=== PATIENT | female | born 1990 | race Caucasian/White ===

== ENCOUNTER → 2016-04-13 | Outpatient (CLI) | payer OTHER ==
[2016-04-13 08:10] LABS: Basophils # (auto) 0 uL; Basophils % (auto) 0.3 % (0.0-2.0); Eosinophils # (auto) 0.1 uL; Eosinophils % (auto) 0.8 % (0.0-7.0); Hemoglobin 12.7 g/dL (12.2-16.2); Lymphocytes % (auto) 14.5 % (10.0-50.0); Mean Corpuscular Hemoglobin 30.4 pg (28.0-32.0); Mean Corpuscular Hgb Conc. 32.5 g/dL (32.0-36.0); Mean Corpuscular Volume 93.7 fL (80.0-100.0); Monocytes # (auto) 0.6 uL; Neutrophils # (auto) 11.1 uL; Neutrophils % (auto) 80.4 % (37.0-80.0); Platelet Count (auto) 265 10^3/uL (140-450); Red Cell Distribution Width 13.2 % (11.6-16.0); White Blood Cell 13.8 10^3/uL (4.4-10.8)
== END | disposition home or self-care (01) ==
LOC: LAB 07:40
PROVIDERS: ATTEND Obstetrics & Gynecology
DX: Z34.00 Encounter for supervision of normal first pregnancy, unspecified trimester (principal)
CPT/HCPCS: 36415; 82951; 83001; 84403; 84443; 85025

== ENCOUNTER → 2016-04-28 | Outpatient (CLI) | payer OTHER | END | disposition home or self-care (01) | LOC: LAB 08:24 | PROVIDERS: ATTEND Obstetrics & Gynecology | DX: Z34.00 Encounter for supervision of normal first pregnancy, unspecified trimester (principal) | CPT/HCPCS: 86850; 86900; 86901 ==

== ENCOUNTER → 2016-06-08 | Outpatient (CLI) | payer OTHER ==
[2016-06-08 09:05] LABS: Basophils # (auto) 0.1 uL; Basophils % (auto) 0.4 % (0.0-2.0); Eosinophils # (auto) 0.1 uL; Eosinophils % (auto) 0.7 % (0.0-7.0); Hematocrit 39.8 % (36.0-46.0); Hemoglobin 13.5 g/dL (12.2-16.2); Lymphocytes % (auto) 16.5 % (10.0-50.0); Mean Corpuscular Hemoglobin 31.3 pg (28.0-32.0); Mean Corpuscular Volume 92.2 fL (80.0-100.0); Mean Platelet Volume 9.2 fL (7.4-10.4); Monocytes # (auto) 0.6 uL; Monocytes % (auto) 5.4 % (0.0-12.0); Neutrophils # (auto) 9.2 uL; Platelet Count (auto) 237 10^3/uL (140-450); Red Cell Distribution Width 13.3 % (11.6-16.0)
== END | disposition home or self-care (01) ==
LOC: LAB 08:32
PROVIDERS: ATTEND Obstetrics & Gynecology
DX: Z11.3 Encounter for screening for infections with a predominantly sexual mode of transmission (principal); Z34.00 Encounter for supervision of normal first pregnancy, unspecified trimester; N76.0 Acute vaginitis
CPT/HCPCS: 36415; 85025; 87081

== ENCOUNTER → 2016-06-22 | Outpatient (CLI) | payer OTHER ==
[2016-06-22 09:23] LABS: Basophils # (auto) 0 uL; Basophils % (auto) 0.2 % (0.0-2.0); Eosinophils # (auto) 0.1 uL; Eosinophils % (auto) 0.8 % (0.0-7.0); Hematocrit 40.4 % (36.0-46.0); Hemoglobin 13.7 g/dL (12.2-16.2); Lymphocytes % (auto) 16.1 % (10.0-50.0); Mean Corpuscular Hemoglobin 31.2 pg (28.0-32.0); Mean Corpuscular Hgb Conc. 33.8 g/dL (32.0-36.0); Mean Corpuscular Volume 92.3 fL (80.0-100.0); Mean Platelet Volume 9.2 fL (7.4-10.4); Monocytes # (auto) 0.7 uL; Monocytes % (auto) 5.3 % (0.0-12.0); Neutrophils # (auto) 9.7 uL; Neutrophils % (auto) 77.6 % (37.0-80.0); Platelet Count (auto) 226 10^3/uL (140-450); Red Cell Distribution Width 13.2 % (11.6-16.0); White Blood Cell 12.4 10^3/uL (4.4-10.8)
[2016-06-22 10:10] LABS: Albumin 2.7 g/dL (3.4-5.0); BUN/Creatinine Ratio 7.5; Bilirubin, Total 0.3 mg/dL (0.2-1.0); Potassium 3.9 mmol/L (3.5-5.1); Total Protein 7.1 g/dL (6.4-8.2); Uric Acid 3.5 mg/dL (2.6-6.0)
== END | disposition home or self-care (01) ==
LOC: LAB 08:58
PROVIDERS: ATTEND Obstetrics & Gynecology
DX: Z34.00 Encounter for supervision of normal first pregnancy, unspecified trimester (principal); O10.913 Unspecified pre-existing hypertension complicating pregnancy, third trimester
CPT/HCPCS: 36415; 80053; 84550; 85025

== ENCOUNTER 2016-07-04 12:40 | Observation (INO) | payer OTHER | END 2016-07-04 14:20 | disposition home or self-care (01) | DRG 782 | LOC: LDRP 12:40 | PROVIDERS: ADMIT Specialist; ATTEND Specialist | DX: O13.3 Gestational [pregnancy-induced] hypertension without significant proteinuria, third trimester (principal); Z3A.39 39 weeks gestation of pregnancy | CPT/HCPCS: 59025; 76818; 81002; 84156; G0378 ==

== ENCOUNTER 2016-07-06 10:05 | Observation (INO) | payer OTHER ==
[~2016-07-06] VITALS: Ht 170.2 cm; Wt 93.4 kg
[2016-07-06 10:57] LABS: Urine Bilirubin Negative (Negative); Urine Blood Negative /uL (Negative); Urine Color Yellow (Yellow); Urine Glucose Normal (Normal); Urine Ketone Negative (Negative); Urine Nitrite Negative (Negative); Urine RBC <1 /hpf (0 - 4); Urine Squamous Epithelial Cell FEW /hpf (<5); Urine Urobilinogen Normal (Negative); Urine pH 6.5 (5.0-8.0)
[2016-07-06 11:08] LABS: Basophils # (auto) 0 uL; Basophils % (auto) 0.3 % (0.0-2.0); Eosinophils # (auto) 0.1 uL; Eosinophils % (auto) 0.5 % (0.0-7.0); Hematocrit 39.1 % (36.0-46.0); Hemoglobin 13.2 g/dL (12.2-16.2); Lymphocytes # (auto) 1.5 uL; Lymphocytes % (auto) 14.6 % (10.0-50.0); Mean Corpuscular Hemoglobin 31.3 pg (28.0-32.0); Mean Corpuscular Hgb Conc. 33.9 g/dL (32.0-36.0); Mean Corpuscular Volume 92.3 fL (80.0-100.0); Mean Platelet Volume 9.6 fL (7.4-10.4); Monocytes # (auto) 0.6 uL; Monocytes % (auto) 5.9 % (0.0-12.0); Neutrophils # (auto) 8.1 uL; Neutrophils % (auto) 78.7 % (37.0-80.0); Platelet Count (auto) 218 10^3/uL (140-450); White Blood Cell 10.3 10^3/uL (4.4-10.8)
[2016-07-06 11:17] LABS: BUN/Creatinine Ratio 11.1; Bilirubin, Total 0.2 mg/dL (0.2-1.0); Potassium 3.8 mmol/L (3.5-5.1); Total Protein 6.6 g/dL (6.4-8.2)
[2016-07-06 11:18] LABS: Albumin 2.8 g/dL (3.4-5.0); INR 0.89 (0.9-1.15); Partial Thromboplastin Time 25.6 sec (22.64-33.71); Prothrombin Time 9.6 sec (9.37-12.3); Uric Acid 3.5 mg/dL (2.6-6.0)
== END 2016-07-06 12:00 | disposition home or self-care (01) | DRG 781 ==
LOC: LDRP 10:05
PROVIDERS: ADMIT Obstetrics & Gynecology; ATTEND Obstetrics & Gynecology
DX: O13.3 Gestational [pregnancy-induced] hypertension without significant proteinuria, third trimester (principal); O26.893 Other specified pregnancy related conditions, third trimester; O62.9 Abnormality of forces of labor, unspecified; N89.8 Other specified noninflammatory disorders of vagina; Z3A.39 39 weeks gestation of pregnancy
CPT/HCPCS: 36415; 59025; 76818; 80053; 81001; 81002; 84550; 85025; 85379; 85610; 85730; G0378

== ENCOUNTER 2016-07-11 12:40 | Observation (INO) | payer OTHER | END 2016-07-11 14:05 | disposition home or self-care (01) | DRG 782 | LOC: LDRP 12:40 | PROVIDERS: ADMIT Specialist; ATTEND Specialist | DX: O48.0 Post-term pregnancy (principal); Z3A.40 40 weeks gestation of pregnancy | CPT/HCPCS: 59025; 76818; 81002; G0378 ==

== ENCOUNTER 2016-07-13 09:10 | Observation (INO) | payer SELFPAY ==
[~2016-07-13] VITALS: Ht 170.2 cm; Wt 93.0 kg
[2016-07-13 10:02] LABS: Urine Bilirubin Negative (Negative); Urine Blood Negative /uL (Negative); Urine Color Yellow (Yellow); Urine Glucose Normal (Normal); Urine Ketone Negative (Negative); Urine Nitrite Negative (Negative); Urine RBC <1 /hpf (0 - 4); Urine Squamous Epithelial Cell FEW /hpf (<5); Urine Urobilinogen Normal (Negative); Urine pH 6.5 (5.0-8.0)
[2016-07-13 10:09] LABS: Basophils # (auto) 0 uL; Eosinophils # (auto) 0.1 uL; Hematocrit 39.6 % (36.0-46.0); Hemoglobin 13.6 g/dL (12.2-16.2); Lymphocytes # (auto) 1.8 uL; Lymphocytes % (auto) 15.4 % (10.0-50.0); Mean Corpuscular Hemoglobin 31.8 pg (28.0-32.0); Mean Corpuscular Hgb Conc. 34.4 g/dL (32.0-36.0); Mean Corpuscular Volume 92.3 fL (80.0-100.0); Mean Platelet Volume 9.5 fL (7.4-10.4); Monocytes # (auto) 0.4 uL; Monocytes % (auto) 3.7 % (0.0-12.0); Neutrophils # (auto) 9.5 uL; Neutrophils % (auto) 79.9 % (37.0-80.0); Platelet Count (auto) 219 10^3/uL (140-450); White Blood Cell 11.9 10^3/uL (4.4-10.8)
[2016-07-13 10:30] LABS: Albumin 2.7 g/dL (3.4-5.0); BUN/Creatinine Ratio 11.1; Bilirubin, Total 0.2 mg/dL (0.2-1.0); Calcium 8.9 mg/dL (8.5-10.1); Potassium 3.8 mmol/L (3.5-5.1); Total Protein 7.1 g/dL (6.4-8.2); Uric Acid 3.6 mg/dL (2.6-6.0)
[2016-07-13 10:35] LABS: Partial Thromboplastin Time 26.7 sec (22.64-33.71); Prothrombin Time 9.5 sec (9.37-12.3)
[2016-07-13 10:37] LABS: INR 0.88 (0.9-1.15)
== END 2016-07-13 11:15 | disposition home or self-care (01) | DRG 998 ==
LOC: EDUNIT# 09:10 → LDRP 09:10
PROVIDERS: ADMIT Specialist; ATTEND Specialist
DX: O13.9 Gestational [pregnancy-induced] hypertension without significant proteinuria, unspecified trimester (principal); Z3A.00 Weeks of gestation of pregnancy not specified
CPT/HCPCS: 36415; 59025; 76818; 80053; 81001; 81002; 84550; 85025; 85379; 85610; 85730; G0378

== ENCOUNTER 2016-07-15 16:05 | Inpatient (IN) | payer OTHER ==
[~2016-07-15] VITALS: Ht 30.5 cm; Wt 0.5 kg
[2016-07-15] MEDS: PENICILLIN G POTASSIUM 2,500,000 UNITS in D5W 5% 50 ML IV SCH (01:21)
[2016-07-15] MEDS: LACTATED RINGER'S 1,000 ML IV SCH (07:00)
[2016-07-15] MEDS ORDERED: LACT. RINGERS/OXYTOCIN 20UNITS 1,000 ML IV SCH (18:26)
[2016-07-15] MEDS ORDERED: NALBUPHINE HCL 10 MG/1ml INJECTION IV PRN (18:30)
[2016-07-15] MEDS ORDERED: METHYLERGONOVINE MALEATE 0.2 MG/ML AMP IM PRN (18:30)
[2016-07-15] MEDS ORDERED: WITCH HAZEL-GLYCERIN PAD TOP PRN (18:30)
[2016-07-15] MEDS ORDERED: PHISODERM TOP SOLN 240ML BTL TOP PRN (18:30)
[2016-07-15] MEDS ORDERED: DERMOPLAST 60ML BOTTLE TOP PRN (18:30)
[2016-07-15] MEDS ORDERED: LIDOCAINE 2%HCL (LOCAL ANESTH.) INJ 20ML MDV IJ ONE (18:30)
[2016-07-15] MEDS ORDERED: PROMETHAZINE HCL 25 MG/ML 1ML IV PRN (18:45)
[2016-07-15] MEDS ORDERED: PENICILLIN G POT 5MIL/D5 50ML 50 ML IV ONE (19:30)
[2016-07-15 19:39] LABS: Basophils # (auto) 0 uL; Basophils % (auto) 0.4 % (0.0-2.0); Eosinophils # (auto) 0.1 uL; Eosinophils % (auto) 0.7 % (0.0-7.0); Hematocrit 39.2 % (36.0-46.0); Hemoglobin 13.5 g/dL (12.2-16.2); Lymphocytes # (auto) 1.9 uL; Lymphocytes % (auto) 14.7 % (10.0-50.0); Mean Corpuscular Hemoglobin 31.6 pg (28.0-32.0); Mean Corpuscular Hgb Conc. 34.4 g/dL (32.0-36.0); Mean Corpuscular Volume 91.8 fL (80.0-100.0); Mean Platelet Volume 9.5 fL (7.4-10.4); Monocytes # (auto) 0.9 uL; Monocytes % (auto) 6.7 % (0.0-12.0); Neutrophils % (auto) 77.5 % (37.0-80.0); Platelet Count (auto) 225 10^3/uL (140-450); Red Cell Distribution Width 13.2 % (11.6-16.0); White Blood Cell 12.9 10^3/uL (4.4-10.8)
[2016-07-15 19:56] LABS: Albumin 2.6 g/dL (3.4-5.0); Calcium 9.2 mg/dL (8.5-10.1); Potassium 3.8 mmol/L (3.5-5.1)
[2016-07-15 19:59] LABS: Bilirubin, Total 0.2 mg/dL (0.2-1.0); Total Protein 6.9 g/dL (6.4-8.2)
[2016-07-15 20:09] LABS: Partial Thromboplastin Time 26.7 sec (22.64-33.71); Prothrombin Time 9.5 sec (9.37-12.3)
[2016-07-15 20:16] LABS: INR 0.87 (0.9-1.15)
[2016-07-15 20:18] LABS: Uric Acid 3.5 mg/dL (2.6-6.0)
[2016-07-15 20:23] LABS: Urine RBC None Seen /hpf (0 - 4)
[2016-07-15 20:37] LABS: Urine Bilirubin Negative (Negative); Urine Blood Negative /uL (Negative); Urine Color Yellow (Yellow); Urine Glucose Normal (Normal); Urine Ketone Negative (Negative); Urine Nitrite Negative (Negative); Urine Squamous Epithelial Cell FEW /hpf (<5); Urine Urobilinogen Normal (Negative)
[2016-07-16] MEDS: LACTATED RINGER'S 1,000 ML IV SCH (02:26)
[2016-07-16] MEDS: PENICILLIN G POTASSIUM 2,500,000 UNITS in D5W 5% 50 ML IV SCH ×5 (05:21→21:23)
[2016-07-16] MEDS ORDERED: DINOPROSTONE 10MG VAG SUPP PV ONE (09:30)
[2016-07-16] MEDS ORDERED: hydrALAZINE HCL 20 MG/ML VL IV ONE (10:00)
[2016-07-16] MEDS ORDERED: LACT. RINGERS/OXYTOCIN 20UNITS 1,000 ML IV SCH (14:38)
[2016-07-16] MEDS ORDERED: TERBUTALINE SULFATE 1 MG/ML 1ML VIAL SC ONE (14:45)
[2016-07-17] VITALS (10 sets, daily range): BP systolic 113–139; BP diastolic 59–91
[2016-07-17] MEDS: PENICILLIN G POTASSIUM 2,500,000 UNITS in D5W 5% 50 ML IV SCH ×3 (01:11→09:30)
[2016-07-17] MEDS ORDERED: ACETAMINOPHEN 325 MG TAB PO ONE (06:45)
[2016-07-17] MEDS ORDERED: CARBOPROST TROMETHAMINE 250 MCG/1ML VIAL IM ONE ×2 (08:20→08:30)
[2016-07-17] MEDS ORDERED: MORPHINE SULF(PF) 0.5MG/ML 10ML VIAL ONE (08:50)
[2016-07-17] MEDS ORDERED: fentaNYL CITRATE 100 MCG/2 ML VL ONE (08:50)
[2016-07-17] MEDS ORDERED: ONDANSETRON HCL 4 MG/2 ML VIAL ONE (09:32)
[2016-07-17] MEDS ORDERED: OXYTOCIN 10 UNIT/ML 10ML VIAL ONE (09:43)
[2016-07-17] MEDS ORDERED: ceFAZolin 1GM VL ONE (09:43)
[2016-07-17] MEDS ORDERED: PHENYLEPHRINE HCL 10 MG/ML VL ONE (09:44)
[2016-07-17] MEDS ORDERED: NALBUPHINE HCL 10 MG/1ml INJECTION SUBCUT ONE (10:15)
[2016-07-17] MEDS ORDERED: ONDANSETRON HCL 4 MG/2 ML VIAL IV PRN ×2 (10:15)
[2016-07-17] MEDS ORDERED: NALOXONE HCL 0.4 MG/ML VIAL IV PRN (10:15)
[2016-07-17] MEDS ORDERED: MORPHINE SULF INJ 2 MG/ML SYRINGE 1ML IV PRN (10:15)
[2016-07-17] MEDS ORDERED: HYDROmorphone HCL 2 MG/ML VL IV PRN (10:15)
[2016-07-17] MEDS ORDERED: OXYTOCIN 10UNIT/ML 1ML VIAL ONE (10:34)
[2016-07-17] MEDS: LACT. RINGERS/OXYTOCIN 20UNITS 1,000 ML IV SCH ×2 (11:15→16:47)
[2016-07-17] MEDS: KETOROLAC TROMETH 30 MG/ML 1ML VIAL IV PRN ×2 (12:45→19:45)
[2016-07-17] MEDS ORDERED: LACTATED RINGER'S 1,000 ML IV ONE (14:45)
[2016-07-17] MEDS: LACTATED RINGER'S 1,000 ML IV SCH ×2 (15:00→21:25)
[2016-07-17 15:14] LABS: Basophils # (auto) 0.1 uL; Basophils % (auto) 0.3 % (0.0-2.0); Eosinophils # (auto) 0 uL; Eosinophils % (auto) 0.1 % (0.0-7.0); Hematocrit 29.1 % (36.0-46.0); Lymphocytes # (auto) 1.7 uL; Lymphocytes % (auto) 9.9 % (10.0-50.0); Mean Corpuscular Hemoglobin 31.8 pg (28.0-32.0); Mean Corpuscular Hgb Conc. 34.3 g/dL (32.0-36.0); Mean Corpuscular Volume 92.6 fL (80.0-100.0); Mean Platelet Volume 8.8 fL (7.4-10.4); Monocytes % (auto) 5.9 % (0.0-12.0); Neutrophils # (auto) 14.1 uL; Neutrophils % (auto) 83.8 % (37.0-80.0); Platelet Count (auto) 231 10^3/uL (140-450); Red Cell Distribution Width 13.1 % (11.6-16.0); White Blood Cell 16.8 10^3/uL (4.4-10.8)
[2016-07-17] MEDS: ceFAZolin 1GM/50ML D5W 50 ML IV SCH (17:54)
[2016-07-17 22:35] LABS: Basophils # (auto) 0 uL; Basophils % (auto) 0.2 % (0.0-2.0); Eosinophils # (auto) 0.1 uL; Eosinophils % (auto) 0.5 % (0.0-7.0); Hematocrit 26.6 % (36.0-46.0); Hemoglobin 9.2 g/dL (12.2-16.2); Lymphocytes # (auto) 2.2 uL; Lymphocytes % (auto) 16.4 % (10.0-50.0); Mean Corpuscular Hemoglobin 31.9 pg (28.0-32.0); Mean Corpuscular Hgb Conc. 34.4 g/dL (32.0-36.0); Mean Corpuscular Volume 92.6 fL (80.0-100.0); Mean Platelet Volume 9.5 fL (7.4-10.4); Monocytes # (auto) 0.9 uL; Neutrophils % (auto) 75.9 % (37.0-80.0); Platelet Count (auto) 200 10^3/uL (140-450); Red Cell Distribution Width 13.3 % (11.6-16.0); White Blood Cell 13.2 10^3/uL (4.4-10.8)
[2016-07-18] VITALS (8 sets, daily range): BP systolic 118–130; BP diastolic 63–72
[2016-07-18] MEDS: ceFAZolin 1GM/50ML D5W 50 ML IV SCH ×3 (01:57→17:57)
[2016-07-18] MEDS: KETOROLAC TROMETH 30 MG/ML 1ML VIAL IV PRN (03:24)
[2016-07-18] MEDS: LACTATED RINGER'S 1,000 ML IV SCH ×3 (07:05→17:58)
[2016-07-18 07:50] LABS: Basophils # (auto) 0 uL; Basophils % (auto) 0.2 % (0.0-2.0); Eosinophils # (auto) 0 uL; Eosinophils % (auto) 0.4 % (0.0-7.0); Hematocrit 25.9 % (36.0-46.0); Hemoglobin 9.1 g/dL (12.2-16.2); Lymphocytes # (auto) 1.8 uL; Lymphocytes % (auto) 17.2 % (10.0-50.0); Mean Corpuscular Hemoglobin 32.5 pg (28.0-32.0); Mean Platelet Volume 8.7 fL (7.4-10.4); Monocytes # (auto) 0.7 uL; Monocytes % (auto) 7.1 % (0.0-12.0); Neutrophils # (auto) 7.7 uL; Neutrophils % (auto) 75.1 % (37.0-80.0); Platelet Count (auto) 184 10^3/uL (140-450); Red Cell Distribution Width 13.5 % (11.6-16.0); White Blood Cell 10.3 10^3/uL (4.4-10.8)
[2016-07-18] MEDS ORDERED: BISACODYL 10 MG RECT SUPP PR PRN (09:30)
[2016-07-18] MEDS: DOCUSATE CALCIUM 240 MG CAP PO SCH (10:28)
[2016-07-18] MEDS: DOCUSATE SOD 100 MG CAP PO SCH ×2 (10:28→22:39)
[2016-07-18] MEDS: FERROUS SULFATE 325 MG TAB PO SCH ×2 (10:28→22:40)
[2016-07-18] MEDS: IBUPROFEN 800 MG TAB PO PRN ×2 (11:29→23:22)
[2016-07-18] MEDS: SIMETHICONE 80 MG CHEWABLE TABLET PO SCH ×3 (12:29→22:40)
[2016-07-18] MEDS: HYDROcodone-ACET 10/325MG TAB PO PRN ×2 (14:17→19:32)
[2016-07-19] MEDS: ceFAZolin 1GM/50ML D5W 50 ML IV SCH ×3 (01:56→17:58)
[2016-07-19 03:00] VITALS: BP 137/81
[2016-07-19] MEDS: HYDROcodone-ACET 10/325MG TAB PO PRN ×3 (05:56→16:53)
[2016-07-19] MEDS: SIMETHICONE 80 MG CHEWABLE TABLET PO SCH ×4 (05:56→21:56)
[2016-07-19] MEDS: LACTATED RINGER'S 1,000 ML IV SCH ×2 (07:00→13:25)
[2016-07-19 07:41] VITALS: BP 121/69
[2016-07-19] MEDS: DOCUSATE SOD 100 MG CAP PO SCH ×2 (10:30→21:57)
[2016-07-19] MEDS: DOCUSATE CALCIUM 240 MG CAP PO SCH (10:30)
[2016-07-19] MEDS: FERROUS SULFATE 325 MG TAB PO SCH ×2 (10:30→21:57)
[2016-07-19 12:18] VITALS: BP 138/81
[2016-07-19 16:10] VITALS: BP 116/74
[2016-07-19 19:00] VITALS: BP 126/86
[2016-07-19] MEDS: IBUPROFEN 800 MG TAB PO PRN (22:01)
[2016-07-19] MEDS ORDERED: TETANUS-DIPTH-ACEL PERTUSSIS 0.5ML SYRG IM ONE (22:15)
[2016-07-19 23:00] VITALS: BP 132/65
[2016-07-20] MEDS: ceFAZolin 1GM/50ML D5W 50 ML IV SCH ×2 (02:06→10:00)
[2016-07-20 03:00] VITALS: BP 127/64
[2016-07-20] MEDS: HYDROcodone-ACET 10/325MG TAB PO PRN (04:05)
[2016-07-20] MEDS: SIMETHICONE 80 MG CHEWABLE TABLET PO SCH (05:49)
[2016-07-20 07:30] VITALS: BP 111/66
[2016-07-20] MEDS ORDERED: PREN-96 PO (08:49)
[2016-07-20] MEDS: DOCUSATE CALCIUM 240 MG CAP PO SCH (10:00)
[2016-07-20] MEDS: FERROUS SULFATE 325 MG TAB PO SCH (10:00)
== END 2016-07-20 09:35 | disposition home or self-care (01) | DRG 766 ==
LOC: EDUNIT# 16:05 → LDRP 16:05 → OBSVTOIN 18:37 → LDRP 18:52
PROVIDERS: ADMIT Obstetrics & Gynecology; ATTEND Obstetrics & Gynecology
PROC: 10D00Z1 Extraction of Products of Conception, Low, Open Approach (ICD-10-PCS; 2016-07-17)
PROC: 30233S1 Transfusion of Nonautologous Globulin into Peripheral Vein, Percutaneous Approach (ICD-10-PCS; 2016-07-17)
PROC: 10907ZC Drainage of Amniotic Fluid, Therapeutic from Products of Conception, Via Natural or Artificial Opening (ICD-10-PCS; principal; 2016-07-17 09:06)
DX: O61.9 Failed induction of labor, unspecified (principal); O13.4 Gestational [pregnancy-induced] hypertension without significant proteinuria, complicating childbirth; O99.824 Streptococcus B carrier state complicating childbirth; Z37.0 Single live birth; Z3A.41 41 weeks gestation of pregnancy; Z83.3 Family history of diabetes mellitus; Z23 Encounter for immunization
CPT/HCPCS: 36415; 51702; 59025; 76818; 80053; 80307; 81001; 81002; 84156; 84550; 85025; 85610; 85730; 86850; 86900; 86901; 90384; 90472; 90715; 96365; 96366; 96374; 96375; G0378; J0690; J1885; J2405; J2540; J2590; J7060